=== PATIENT | female | born 2000 | race Caucasian/White ===

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

== ENCOUNTER 2023-07-16 04:48 | Inpatient (IN) | payer OTHER, MEDICAID ==
[2023-07-16] MEDS ORDERED: LORazepam 2 MG/ML INJ IM STA ×2 (04:56→05:57)
[2023-07-16] MEDS ORDERED: diphenhydrAMINE 50 MG/ML 1 ML VIAL IM STA (04:56)
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
[2023-07-16] MEDS ORDERED: HALOPERIDOL LACTATE 5 MG/ML 1 ML VIAL IM STA (05:26)
[2023-07-16 06:09] LABS: Basophils # (A) 0.1 k/uL (0-0.2); Basophils % (A) 1 %; Eosinophils % (A) 1 %; HCT 41.8 % (34.0-46.0); HGB 14.5 gm/dL (11.4-16.0); Lymphocytes # (A) 1.8 k/uL (1.0-4.8); Lymphocytes % (A) 24 %; MCH 30.8 pg (25.0-35.0); MCHC 34.8 g/dL (31.0-37.0); MCV 88.6 fL (80.0-100.0); Mean Platelet Volume 7.5; Monocytes # (A) 0.5 k/uL (0-1.0); Monocytes % (A) 6 %; Neutrophils % (A) 67 %; Platelet Count 298 k/uL (150-450); RBC 4.72 m/uL (3.80-5.40); RDW 11.7 % (11.5-15.5); WBC 7.5 k/uL (4.0-11.0)
[2023-07-16 06:31] LABS: ALT 18 U/L (4-34); AST 25 U/L (14-36); Acetaminophen <10.0 ug/mL; African American GFR (CKD) >90 (>60 ml/min/1.73 sqM); Albumin 5.3 g/dL (3.5-5.0); Alkaline Phosphatase 55 U/L (38-126); Anion Gap 19 mmol/L; Blood Urea Nitrogen 4 mg/dL (7-17); Calcium 10.1 mg/dL (8.4-10.2); Carbon Dioxide 17 mmol/L (22-30); Chloride 110 mmol/L (98-107); Glucose 92 mg/dL (74-99); Non-African American GFR(CKD) >90 (>60 ml/min/1.73 sqM); Potassium 3.5 mmol/L (3.5-5.1); Salicylate <1.0 mg/dL; Sodium 146 mmol/L (137-145); Total Bilirubin 0.6 mg/dL (0.2-1.3); Total Protein 8.2 g/dL (6.3-8.2)
[2023-07-16 06:34] LABS: Alcohol 199 mg/dL
[2023-07-16 13:24] LABS: Amorphous Sediment,Urine Rare /hpf; Appearance,Urine Cloudy (Clear); Bacteria,Urine Rare /hpf; Bilirubin,Urine Negative (Negative); Blood,Urine Trace (Negative); Color,Urine Yellow; Glucose,Urine (UA) Negative (Negative); Granular Casts,Urine 5 /lpf (0); Hyaline Casts,Urine 1 /lpf (0-2); Ketones,Urine 1+ (Negative); Leukocyte Esterase,Urine Negative (Negative); Mucus,Urine Occasional /hpf; Nitrite,Urine Negative (Negative); Protein,Urine Trace (Negative); RBC,Urine 1 /hpf (0-5); Specific Gravity,Urine 1.028 (1.001-1.035); Squamous Epithelial Cell,Urine 6 /hpf (0-4); Urobilinogen,Urine <2.0 mg/dL (<2.0); WBC,Urine 2 /hpf (0-5)
[2023-07-16 13:31] LABS: Amphetamine Screen,Urine Not Detected (NotDetected); Barbiturate Screen,Urine Not Detected (NotDetected); Benzodiazepines Screen,Urine Not Detected (NotDetected); Cocaine Screen,Urine Not Detected (NotDetected); Methadone Screen, Urine Not Detected (NotDetected); Opiate Screen,Urine Not Detected (NotDetected); Oxycodone Screen, Urine Not Detected (NotDetected); Phencyclidine Screen,Urine Not Detected (NotDetected); Tricyclic Antidepressant,Urine Not Detected (NotDetected); Urn Cannabinoid Scrn Not Detected (NotDetected)
[2023-07-16] MEDS ORDERED: MAG HYDROX/AL HYDROX/SIMETH 30 ML CUP PO PRN (21:49)
[2023-07-16] MEDS ORDERED: ACETAMINOPHEN TAB 325 MG TAB PO PRN (21:49)
[2023-07-16] MEDS ORDERED: MAGNESIUM HYDROXIDE 2,400 MG/30 ML CUP PO PRN (21:49)
[2023-07-16] MEDS ORDERED: OLANZapine ODT 5 MG TAB PO PRN (21:50)
--- NOTE | 2023-07-17 02:15 | P.CONS ---
History of Present Illness - Reason for Consult Consult date: 07/17/23 - History of Present Illness The patient is a 22-year-old female with a PMH of depression who presented to the emergency room with depressive thoughts and suicidal ideation. The patient had reportedly gotten intoxicated and scratched her neck and arms. The patient was admitted to the mental health unit where she was seen and evaluated accompanied by a mental health unit RN. The patient denies any physical complaints at the time of interview. She denied experiencing chest discomfort, shortness of breath, fever, chills, cough, nausea, vomiting, abdominal pain, diarrhea. She denies any pain at the site of her scratches on her neck and arms. She denied tobacco, substance, or alcohol use. The patient's blood alc ohol level in the emergency room was 199. Review of systems: Pertinent positives and negatives as discussed in HPI, a complete review of systems was performed and all other systems are negative. Physical examination: General: non toxic, no distress, appears at stated age, underweight Derm: Superficial lacerations over both arms and neck, no unusual ecchymoses, warm, dry Head: atraumatic, normocephalic, symmetric Eyes: EOMI, no lid lag, anicteric sclera ENT: Nose and ears atraumatic, no thrush, no pharyngeal erythema Neck: trachea midline, supple Mouth: no lip lesion, mucus membranes moist Cardiovascular: S1S2 reg, no murmur, no edema Lungs: CTA bilateral, no rhonchi, no rales , no accessory muscle use Abdominal: soft, nontender to palpation, no guarding Ext: no gross muscle atrophy, no contractures, Neuro: No gross focal neuro deficits noted Psych: Alert, oriented, flat affect Assessment: Hypernatremia Alcohol abuse Depression and suicidal ideation Imaging: None performed Data Review: Laboratory evaluation was reviewed with sodium 146, chloride 110, CO2 17, BUN 4, and serum alcohol level 199. Plan: Monitor BMP Advised on importance of cessation from alcohol use Defer management of depression and suicidal ideation to the primary psychiatry service Thank you for allowing us to participate in the care of this patient. We will follow peripherally. Do not hesitate to contact us with questions. Someone can be reached from the [facility] hospitalist group at all hours of the day at [phone]. Past Medical History Past Medical History: No Reported History Additional Past Medical History / Comment(s): Patient states she is supposed to wear glasses but doesn't. Patient unsure why she is supposed to wear glasses just that one eye is worse then the other History of Any Multi-Drug Resistant Organisms: None Reported Past Surgical History: No Surgical Hx Reported Past Anesthesia/Blood Transfusion Reactions: No Reported Reaction Smoking Status: Never smoker - Past Family History Father History Unknown: Yes Mother Additional Family Medical History / Comment(s): Patient only knows mom has history of schizophrenia Brother(s) Additional Family Medical History / Comment(s): Patient only knows older brother has history of schizophrenia Medications and Allergies Home Medications Medication Instructions Recorded Confirmed Type Buspar(Unknown Dose) 1 dose PO DIRECTED 07/16/23 07/16/23 History Zoloft(Unknown Dose) 1 dose PO DIRECTED 07/16/23 07/16/23 History Allergies Allergy/AdvReac Type Severity Reaction Status Date / Time No Known Allergies Allergy Verified 07/16/23 17:30 Physical Exam Vitals: Vital Signs Temp Pulse Pulse Resp BP BP Pulse Ox 07/16/23 23:27 98.1 F 121 H 18 131/81 99 07/16/23 17:49 98.9 F 121 H 18 133/81 100 07/16/23 04:56 102 H 18 138/96 98 Intake and Output 07/16/23 07/16/23 07/17/23 14:59 22:59 06:59 Other: Weight 47.797 kg Results CBC & Chem 7: 07/16/23 05:53 07/16/23 05:53 Labs: Abnormal Lab Results - Last 24 Hours (Table) 07/16/23 07/16/23 Range/Units 05:53 05:53 Sodium 146 H (137-145) mmol/L Chloride 110 H (98-107) mmol/L Carbon Dioxide 17 L (22-30) mmol/L BUN 4 L (7-17) mg/dL Albumin 5.3 H (3.5-5.0) g/dL Urine Appearance Cloudy H (Clear) Urine Protein Trace H (Negative) Urine Ketones 1+ H (Negative) Urine Blood Trace H (Negative) Ur Squamous Epith Cells 6 H (0-4) /hpf Amorphous Sediment Rare H (None) /hpf Urine Bacteria Rare H (None) /hpf Urine Mucus Occasional H (None) /hpf
[2023-07-17] MEDS ORDERED: OLANZapine 10 MG VIAL IM PRN (11:56)
[2023-07-17] MEDS ORDERED: OLANZapine 5 MG TAB PO PRN (11:56)
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
[2023-07-17] MEDS: QUEtiapine 25 MG TAB PO SCH ×2 (12:30→21:02)
[2023-07-17] MEDS: DULoxetine HCL 30 MG CAPSULE.DR PO SCH (12:30)
[2023-07-17] MEDS: NICOTINE 14MG/24HR PATCH TRANSDERM SCH (12:35)
[2023-07-18] MEDS: DULoxetine HCL 30 MG CAPSULE.DR PO SCH (08:47)
[2023-07-18] MEDS: QUEtiapine 25 MG TAB PO SCH ×2 (08:47→20:59)
[2023-07-18] MEDS: NICOTINE 14MG/24HR PATCH TRANSDERM SCH (08:47)
--- NOTE | 2023-07-18 11:26 | P.PN ---
Progress Note - Text Progress Note Date: 07/18/23 Interval History: Patient was seen laying in bed and was directable and agreeable to speak with blog writer in the office. Patient states she's feeling better, sleeping well, and her appetite is good. she claims that she is feeling fairly tired fduring the day. patient was fairly superficial and focused on discharge. She states she don't want to be here anymore, and wants to go home. Appears visibly upset. Tearful. At this time patient denies any suicidal or homical ideations, intent or plan. Patient denies any auditory, visual hallucinations and denies any paranoia or delusions. Patient denies any side effects from the medications and has been compliant with meds. Mental Status Exam: General Appearance: Patient appears to be short and thin, short dark hair, ear piercings, multiple self harm scars on arms, stated age is alert, directable, and attempts to cooperate. Patient appears to have fair hygiene and grooming. Behavior: Patient is calmly seated without any agitated behavior. Appears mildly anxious, tearful. Speech: Patient's speech is fluent and nonpressured. Mood/Affect: Mood is sad, affect is congruent and constricted. Suicidality/Homicidality: Patient denies having any suicidal or homicidal ideation intent or plan. Perceptions: Patient denies any visual hallucinations and denies any auditory hallucinations Though content/process: There is no evidence of any delusional thought content and thought process is linear and goal-directed. focused on discharge. Memory and concentration: AOX3, grossly intact for the purposes of this session Judgment and insight: Improving mildly Assessment Adjustment disorder with disturbance in conduct and emotions history of depressive disorder Alcohol abuse Self-harm Plan: -Patient continues to meet criteria for inpatient psychiatric admission for symptom stabilization and safety. Patient has signed adult voluntary form and medication consent and was placed in patient's chart. -Medications: increase Cymbalta 60mg qd for mood//anxiety, starting tomorrow 07/19 decrease Seroquel 25mg qhs mood stabilization/adjunct/sleep. -When necessary Ativan and Haldol for agitation/aggression. -NRT -nonsmoker -SW on board for discharge planning. Encouraged the patient to participate in milieu. Likely discharge -friday, if patient continues to improve.
[2023-07-18 12:20] VITALS: BMI 17.5
[2023-07-19] MEDS: NICOTINE 14MG/24HR PATCH TRANSDERM SCH (09:23)
[2023-07-19] MEDS: DULoxetine HCL 60 MG CAPSULE.DR PO SCH (09:23)
--- NOTE | 2023-07-19 09:23 | P.PN ---
Progress Note - Text Progress Note Date: 07/19/23 Interval History: Patient was seen the nurse's desk and was directable and agreeable to speak with writer technical publications in the office. Patient states she's feeling better today and claims that she was able to sleep very well last night. Claims that her energy is mildly improving today. She states that her mood and anxiety also mildly improving. She did not take her medications this morning and waiting in line for them. Claims that she is trying to go to some groups. Continues to be fairly concrete and constricted, and her appetite is good. At this time patient denies any suicidal or homical ideations, intent or plan. Patient denies any auditory, visual hallucinations and denies any paranoia or delusions. Patient denies any side effects from the medications and has been compliant with meds. Mental Status Exam: General Appearance: Patient appears to be short and thin, short dark hair, ear piercings, multiple self harm scars on arms, stated age is alert, directable, and attempts to cooperate. Patient appears to have fair hygiene and grooming. Behavior: Patient is calmly seated without any agitated behavior. Speech: Patient's speech is fluent and nonpressured. Mood/Affect: Mood is sad, affect is congruent and constricted. Suicidality/Homicidality: Patient denies having any suicidal or homicidal ideation intent or plan. Perceptions: Patient denies any visual hallucinations and denies any auditory hallucinations Though content/process: There is no evidence of any delusional thought content and thought process is linear and goal-directed. Memory and concentration: AOX3, grossly intact for the purposes of this session Judgment and insight: Improving mildly Assessment Adjustment disorder with disturbance in conduct and emotions history of depressive disorder Alcohol abuse Self-harm Plan: -Patient continues to meet criteria for inpatient psychiatric admission for symptom stabilization and safety. Patient has signed adult voluntary form and medication consent and was placed in patient's chart. -Medications: Cymbalta 60 mg qd for mood//anxiety, Seroquel 25mg qhs mood stabilization/adjunct/sleep. -When necessary Ativan and Haldol for agitation/aggression. -NRT - nonsmoker -SW on board for discharge planning. Encouraged the patient to participate in milieu. Likely discharge -friday, if patient continues to improve.
[2023-07-19 09:28] VITALS: RESP 16
[2023-07-19] MEDS: QUEtiapine 25 MG TAB PO SCH (20:41)
[2023-07-20] MEDS: DULoxetine HCL 60 MG CAPSULE.DR PO SCH (08:40)
--- NOTE | 2023-07-20 10:46 | P.PN ---
Progress Note - Text Progress Note Date: 07/20/23 Interval History: Patient was seen sitting in the lounge with the other patients today. She cla ims that she is doing a bit better today feels calmer. Claims that medications haven't been helping her. States that she is sleeping better. She asked about her weight if it was documented. Claims that she would like to go home tomorrow if she is able to. States that her appetite is improving mildly. At this time patient denies any suicidal or homical ideations, intent or plan. Patient denies any auditory, visual hallucinations and denies any paranoia or delusions. Patient denies any side effects from the medications and has been compliant with meds. Mental Status Exam: General Appearance: Patient appears to be short and thin, short dark hair, ear piercings, multiple self harm scars on arms, stated age is alert, directable, and attempts to cooperate. Patient appears to have fair hygiene and grooming. Behavior: Patient is calmly seated without any agitated behavior. improving, more cooperative, Speech: Patient's speech is fluent and nonpressured. improving Mood/Affect: Mood is sad, affect is congruent and constricted. Suicidality/Homicidality: Patient denies having any suicidal or homicidal ideation intent or plan. Perceptions: Patient denies any visual hallucinations and denies any auditory hallucinations Though content/process: There is no evidence of any delusional thought content and thought process is linear and goal-directed. Memory and concentration: AOX3, grossly intact for the purposes of this session Judgment and insight: Improving mildly Assessment: Adjustment disorder with disturbance in conduct and emotions history of depressive disorder Alcohol abuse Self-harm Plan: -Patient continues to meet criteria for inpatient psychiatric admission for symptom stabilization and safety. Patient has signed adult voluntary form and medication consent and was placed in patient's chart. -Medications: Cymbalta 60 mg qd for mood//anxiety, Seroquel 25mg qhs mood stabilization/adjunct/sleep. -When necessary Ativan and Haldol for agitation/aggression. -NRT - nonsmoker -SW on board for discharge planning. Encouraged the patient to participate in milieu. Likely discharge tomorrow back home, if patient continues to improve.
[2023-07-20] MEDS: QUEtiapine 25 MG TAB PO SCH (20:33)
[2023-07-21] MEDS: DULoxetine HCL 60 MG CAPSULE.DR PO SCH (08:40)
[2023-07-21 08:57] VITALS: BP 128/76; PULSE 75; TEMP 97.5
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
== END 2023-07-21 12:46 | disposition home or self-care (01) | DRG 882 ==
LOC: EC 04:48 → 3MHU 21:38
PROVIDERS: ADMIT Psychiatry & Neurology Psychiatry; ATTEND Psychiatry & Neurology Psychiatry
DX: F43.25 Adjustment disorder with mixed disturbance of emotions and conduct (principal); F23 Brief psychotic disorder; R45.851 Suicidal ideations; E87.0 Hyperosmolality and hypernatremia; F32.A Depression, unspecified; R45.1 Restlessness and agitation; S10.91XA Abrasion of unspecified part of neck, initial encounter; S40.812A Abrasion of left upper arm, initial encounter; S40.811A Abrasion of right upper arm, initial encounter; F10.129 Alcohol abuse with intoxication, unspecified; Y90.6 Blood alcohol level of 120-199 mg/100 ml; G47.00 Insomnia, unspecified; F41.9 Anxiety disorder, unspecified; Z11.52 Encounter for screening for COVID-19; Z28.310 Unvaccinated for COVID-19; Z78.1 Physical restraint status; Z62.810 Personal history of physical and sexual abuse in childhood; Z62.811 Personal history of psychological abuse in childhood; Z79.899 Other long term (current) drug therapy; Z55.5 Less than a high school diploma; Z91.52 Personal history of nonsuicidal self-harm
CPT/HCPCS: 36415; 80053; 80143; 80179; 80306; 80320; 81001; 81025; 85025; 87635; 96372; 99285